=== PATIENT | female | born 1975 | race Caucasian/White ===

== ENCOUNTER 2021-03-24 16:55 | Inpatient (IN) | payer OTHER ==
[2021-03-23 20:13] VITALS: BMI 27.9
[2021-03-24 12:36] LABS: HEMATOCRIT 37.7 % (32.4-45.2); HEMOGLOBIN 12.6 GM/dL (10.7-15.3); MCHC 33.4 g/dl (32.0-36.0); MEAN CELL VOLUME 95.8 fl (80-96); MEAN PLT VOLUME 8.6 fl (7.5-11.1); PLATELET COUNT 366 10^3/uL (134-434); RBC 3.93 M/mm3 (3.60-5.2); RDW 14.6 % (11.6-15.6); WHITE BLOOD COUNT 9.7 K/mm3 (4.0-10.0)
[2021-03-24 12:43] LABS: CHLORIDE 112 mmol/L (98-107); SODIUM 142 mmol/L (136-145)
[2021-03-24 12:52] LABS: ALBUMIN 3.5 g/dl (3.4-5.0)
[2021-03-24 12:55] LABS: BLOOD UREA NITROGEN 19.8 mg/dL (7-18); SGPT/ALT 88 U/L (13-61)
[2021-03-24 12:56] LABS: ANION GAP 10 MMOL/L (8-16); BILIRUBIN,TOTAL 0.5 mg/dL (0.2-1); CO2 20 mmol/L (21-32); GLUCOSE,RANDOM 92 mg/dL (74-106)
[2021-03-24 12:57] LABS: TOT PROT 6.9 g/dl (6.4-8.2)
[2021-03-24 12:58] LABS: ALK PHOS 86 U/L (45-117); CREATININE 1.2 mg/dL (0.55-1.3); SGOT/AST 50 U/L (15-37)
[~2021-03-24 16:55] MED LIST: IBUPROFEN 400 MG TABLET (FP) PO PRN; LISINOPRIL 10 MG TABLET PO ONE; LOPERAMIDE HCL 2 MG CAPSULE PO PRN; MAG HYDROX/AL HYDROX/SIMETH 30 ML UNIT-DOSE CUP PO PRN; MAGNESIUM CITRATE 300 ML BOTTLE PO PRN; MAGNESIUM HYDROX 2400MG/30ML ORAL SUSPENSION 30 ML CUP PO PRN; P-EPHED 60MG/TRIPROLIDI 2.5MG TABLET PO PRN
[2021-03-24] MEDS ORDERED: ALBUTEROL SO4 HFA INHALER IH PRN (18:04)
[2021-03-24] MEDS: MELATONIN 5 MG TABLETS PO SCH (22:16)
[2021-03-24] MEDS: THIAMINE HCL 100 MG TABLET (FP) PO SCH (22:17)
[2021-03-25] MEDS: PRENATAL VITAMINS W/ FOLIC ACID TABLET (FP) PO SCH (10:24)
[2021-03-25] MEDS ORDERED: buPROPion HCL 75 MG TABLET PO SCH (12:00)
[2021-03-25] MEDS ORDERED: methylPREDNISolone 4 MG TABLET PO ONE (13:45)
[2021-03-25] MEDS: TOPIRAMATE 100 MG TABLET PO SCH ×2 (14:06→21:58)
[2021-03-25] MEDS: THIAMINE HCL 100 MG TABLET (FP) PO SCH (21:58)
[2021-03-25] MEDS: LITHIUM CARBONATE 300 MG CAPSULE PO SCH (21:58)
[2021-03-25] MEDS: MELATONIN 5 MG TABLETS PO SCH (21:59)
[2021-03-26] MEDS: guaiFENesin 200 MG/10 ML 10 ML UNIT-DOSE CUPS PO PRN ×3 (02:09→17:22)
[2021-03-26] MEDS ORDERED: methylPREDNISolone 4 MG TABLET PO ONE (10:00)
[2021-03-26] MEDS: PRENATAL VITAMINS W/ FOLIC ACID TABLET (FP) PO SCH ×2 (10:11→10:49)
[2021-03-26] MEDS: LITHIUM CARBONATE 300 MG CAPSULE PO SCH ×2 (10:50→21:28)
[2021-03-26] MEDS: TOPIRAMATE 100 MG TABLET PO SCH ×2 (10:50→21:28)
[2021-03-26 13:42] LABS: PH,URINE 7.5 (5.0-8.0); URINE APPEARANCE TURBID; URINE BILIRUBIN NEGATIVE (NEGATIVE); URINE COLOR YELLOW; URINE GLUCOSE (UA) NEGATIVE (NEGATIVE); URINE KETONE NEGATIVE (NEGATIVE); URINE LEUK ESTERASE NEGATIVE (NEGATIVE); URINE NITRITE NEGATIVE (NEGATIVE); URINE PROTEIN TRACE (NEGATIVE)
[2021-03-26 15:02] LABS: EPI CELLS FEW /uL (0-25.1)
[2021-03-26] MEDS: hydrOXYzine PAMOATE 50 MG CAPSULE (FP) PO PRN ×2 (15:55→21:28)
[2021-03-26] MEDS: THIAMINE HCL 100 MG TABLET (FP) PO SCH (21:28)
[2021-03-27] MEDS: guaiFENesin 200 MG/10 ML 10 ML UNIT-DOSE CUPS PO PRN ×2 (06:41→13:08)
[2021-03-27] MEDS: PRENATAL VITAMINS W/ FOLIC ACID TABLET (FP) PO SCH (10:43)
[2021-03-27] MEDS: LITHIUM CARBONATE 300 MG CAPSULE PO SCH ×2 (10:43→21:25)
[2021-03-27] MEDS: TOPIRAMATE 100 MG TABLET PO SCH ×2 (10:43→21:25)
[2021-03-27] MEDS: hydrOXYzine PAMOATE 50 MG CAPSULE (FP) PO PRN ×2 (11:43→21:28)
[2021-03-27] MEDS: THIAMINE HCL 100 MG TABLET (FP) PO SCH (21:26)
[2021-03-27] MEDS: ACETAMINOPHEN 325 MG TABLET (FP) PO PRN (23:40)
[2021-03-28] MEDS: hydrOXYzine PAMOATE 50 MG CAPSULE (FP) PO PRN ×2 (06:17→17:50)
[2021-03-28] MEDS: guaiFENesin 200 MG/10 ML 10 ML UNIT-DOSE CUPS PO PRN ×2 (07:13→14:33)
[2021-03-28] MEDS: PRENATAL VITAMINS W/ FOLIC ACID TABLET (FP) PO SCH (10:22)
[2021-03-28] MEDS: TOPIRAMATE 100 MG TABLET PO SCH ×2 (10:23→21:41)
[2021-03-28] MEDS: ACETAMINOPHEN 325 MG TABLET (FP) PO PRN (10:24)
[2021-03-28] MEDS: LITHIUM CARBONATE 300 MG CAPSULE PO SCH ×2 (10:24→21:41)
[2021-03-28] MEDS ORDERED: PT OWN MED DRAWER 7, Y5N ONE (20:29)
[2021-03-28] MEDS: THIAMINE HCL 100 MG TABLET (FP) PO SCH (21:41)
[2021-03-29] MEDS: guaiFENesin 200 MG/10 ML 10 ML UNIT-DOSE CUPS PO PRN ×2 (06:12→14:13)
[2021-03-29] MEDS: TOPIRAMATE 100 MG TABLET PO SCH ×2 (10:17→21:39)
[2021-03-29] MEDS: PRENATAL VITAMINS W/ FOLIC ACID TABLET (FP) PO SCH (10:17)
[2021-03-29] MEDS: LITHIUM CARBONATE 300 MG CAPSULE PO SCH ×2 (10:19→21:39)
[2021-03-29] MEDS ORDERED: PT OWN MED DRAWER 7, Y5N ONE (19:58)
[2021-03-29] MEDS: THIAMINE HCL 100 MG TABLET (FP) PO SCH (21:39)
[2021-03-30] MEDS ORDERED: ASPIRIN 81 MG CHEWABLE TABLETS PO ONE (04:48)
[2021-03-30] MEDS ORDERED: ASPIRIN COATED 81 MG TABLET.EC ONE (04:49)
[2021-03-30] MEDS: PRENATAL VITAMINS W/ FOLIC ACID TABLET (FP) PO SCH (11:06)
[2021-03-30] MEDS: LITHIUM CARBONATE 300 MG CAPSULE PO SCH ×2 (11:06→21:52)
[2021-03-30] MEDS: TOPIRAMATE 100 MG TABLET PO SCH ×2 (11:07→21:52)
[2021-03-30] MEDS: THIAMINE HCL 100 MG TABLET (FP) PO SCH (21:52)
[2021-03-30] MEDS: guaiFENesin 200 MG/10 ML 10 ML UNIT-DOSE CUPS PO PRN (21:54)
[2021-03-30 22:49] VITALS: TEMP 98
[2021-03-31] MEDS: ACETAMINOPHEN 325 MG TABLET (FP) PO PRN ×2 (06:15→09:23)
[2021-03-31 07:49] VITALS: BP 151/92; PULSE 110
[2021-03-31] MEDS: PRENATAL VITAMINS W/ FOLIC ACID TABLET (FP) PO SCH (09:21)
[2021-03-31] MEDS: LITHIUM CARBONATE 300 MG CAPSULE PO SCH (09:21)
[2021-03-31] MEDS: TOPIRAMATE 100 MG TABLET PO SCH (09:22)
== END 2021-03-31 11:45 | disposition home or self-care (01) | DRG 772 ==
LOC: YASAS 16:55 → Y5N 16:57
PROVIDERS: ADMIT Allergy & Immunology; ATTEND Allergy & Immunology
PROC: HZ42ZZZ Group Counseling for Substance Abuse Treatment, Cognitive-Behavioral (ICD-10-PCS; principal; 2021-03-24)
DX: F10.20 Alcohol dependence, uncomplicated (principal); F19.280 Other psychoactive substance dependence with psychoactive substance-induced anxiety disorder; F19.24 Other psychoactive substance dependence with psychoactive substance-induced mood disorder; F31.9 Bipolar disorder, unspecified; F41.9 Anxiety disorder, unspecified; I10 Essential (primary) hypertension; J20.9 Acute bronchitis, unspecified; G47.419 Narcolepsy without cataplexy; R07.89 Other chest pain; R05 Cough; R94.31 Abnormal electrocardiogram [ECG] [EKG]; Z87.891 Personal history of nicotine dependence; Z62.810 Personal history of physical and sexual abuse in childhood; Z91.410 Personal history of adult physical and sexual abuse
CPT/HCPCS: 36415; 71046-TC-FY; 80053; 80178; 81003; 81025; 82550; 82553; 82962; 84484; 85025; 85027; 85379; 85610; 85730; 86780; 93005; 93010; C9803; U0003; U0005

== ENCOUNTER 2021-03-30 05:46 | Emergency (ER) | payer OTHER ==
[2021-03-30 05:55] VITALS: BMI 27.7
[2021-03-30 07:22] LABS: BASO % 0.8 % (0-2.0); EOS % 4.4 % (0-4.5); HEMOGLOBIN 13.3 GM/dL (10.7-15.3); LYMPH % 25.2 % (8-40); MCH 31.5 pg (25.7-33.7); MCHC 32.5 g/dl (32.0-36.0); MEAN PLT VOLUME 8.5 fl (7.5-11.1); MONO % 9.5 % (3.8-10.2); NEUT % 60.1 % (42.8-82.8); PLATELET COUNT 389 10^3/uL (134-434); RBC 4.23 M/mm3 (3.60-5.2); RDW 14.9 % (11.6-15.6); WHITE BLOOD COUNT 9.3 K/mm3 (4.0-10.0)
[2021-03-30 07:28] LABS: INR 0.92 (0.83-1.09); PROTHROMBIN TIME (PATIENT) 11.4 SEC (9.7-13.0)
[2021-03-30] MEDS ORDERED: SODIUM CHLORIDE 0.9% 500 ML INFUS.BAG IV ONE (07:32)
[2021-03-30 07:38] LABS: CHLORIDE 116 mmol/L (98-107); SODIUM 142 mmol/L (136-145)
[2021-03-30 07:40] LABS: ALBUMIN 3.3 g/dl (3.4-5.0); ANION GAP 5 MMOL/L (8-16); BLOOD UREA NITROGEN 23.3 mg/dL (7-18); CALCIUM 8.6 mg/dL (8.5-10.1); CO2 21 mmol/L (21-32); GLUCOSE,RANDOM 83 mg/dL (74-106)
[2021-03-30 07:44] LABS: CREATININE 1.1 mg/dL (0.55-1.3); SGOT/AST 25 U/L (15-37); SGPT/ALT 62 U/L (13-61)
[2021-03-30 07:46] LABS: BILIRUBIN,TOTAL 0.3 mg/dL (0.2-1); TOT PROT 6.8 g/dl (6.4-8.2)
[2021-03-30 07:47] LABS: ALK PHOS 85 U/L (45-117)
[2021-03-30] MEDS ORDERED: KETOROLAC TROMETHAMINE 15 MG/ML VIAL IVPUSH ONE (07:48)
[2021-03-30] MEDS ORDERED: LORazepam 2 MG TABLET PO ONE (07:55)
[2021-03-30] MEDS ORDERED: KETOROLAC TROMETHAMINE 15 MG/ML VIAL ONE (08:15)
[2021-03-30] MEDS ORDERED: LORazepam 2 MG/ML SDV VIAL ONE (08:15)
[2021-03-30] MEDS ORDERED: LORazepam 1 MG TABLET ONE (08:20)
[2021-03-30 17:13] VITALS: PULSE 94; TEMP 98.5
[2021-03-30 18:16] VITALS: BP 168/97
== END 2021-03-30 18:15 | disposition home or self-care (01) ==
LOC: JER 05:46
PROC: 3E0333Z Introduction of Anti-inflammatory into Peripheral Vein, Percutaneous Approach (ICD-10-PCS; principal; 2021-03-30)
DX: R05 Cough (principal); R07.9 Chest pain, unspecified
CPT/HCPCS: 36415; 71045-TC-FY; 71275-TC; 80053; 84484; 84703; 85025; 85379; 85610; 85730; 93005; 93010; 99285-25; C9803; Q9967; U0003; U0005